=== PATIENT | male | born 1975 | race Caucasian/White ===

== ENCOUNTER → 2017-10-27 11:19 | Outpatient (CLI) | payer OTHER, SELFPAY ==
--- NOTE | 2017-10-27 11:23 | DI.RAD.S_ITS ---
PROCEDURE: XR HAND RT MIN 3V INDICATIONS: 42 year-old male with right hand and finger pain. TECHNIQUE: 3 views of the hand(s) acquired. COMPARISON: None. FINDINGS: Bones: No acute fractures or dislocations. There is nonacute nonunited tiny volar plate avulsion fracture involving the fourth middle phalangeal base. Carpal bones are normally aligned. No suspicious bony lesions. Soft tissues: No suspicious soft tissue calcifications. IMPRESSION: No acute bony injuries of the right hand and fingers. Nonacute nonunited volar plate avulsion fracture of the fourth middle phalangeal base. Dictated by: Tyler Ruiz M.D. on 10/27/2017 at 11:54 Approved by: Tyler Ruiz M.D. on 10/27/2017 at 11:55
== END ==
PROVIDERS: Visit Provider Physician Assistant
DX: M79.641 Pain in right hand (principal); M79.644 Pain in right finger(s)
CPT/HCPCS: 73130

== ENCOUNTER → 2022-05-14 14:05 | Outpatient (CLI) | payer OTHER, SELFPAY ==
--- NOTE | 2022-05-14 14:10 | DI.RAD.S_ITS ---
PROCEDURE: XR KNEE LT 3V INDICATIONS: KNEE PAIN TECHNIQUE: 3 views of the knee were acquired. COMPARISON: None. FINDINGS: Bones: No fractures or dislocations. Mild to moderate tricompartmental osteoarthritis is seen most notably in medial femoral tibial compartment with joint space narrowing, subchondral sclerosis and marginal osteophyte formation. No suspicious bony lesions. Soft tissues: No significant joint effusion. No suspicious soft tissue calcifications. IMPRESSION: [id number] tricompartmental osteoarthritis most notably in medial femoral tibial compartment. No fracture or dislocation. No significant joint effusion. Dictated by: Yobani Cash M.D. on 05/14/2022 at 17:40 Approved by: Yobani Cash M.D. on 05/14/2022 at 17:41
--- NOTE | 2022-05-14 14:11 | DI.RAD.S_ITS ---
PROCEDURE: XR KNEE RT 3V INDICATIONS: KNEE PAIN TECHNIQUE: 3 views of the knee were acquired. COMPARISON: None. FINDINGS: Bones: No fractures or dislocations. Mild tricompartmental osteoarthritis is seen with joint space narrowing and subchondral sclerosis. Fragmented appearance of tibial tuberosity at distal patellar tendon insertion is seen suggestive of old healed Ramon-Schlatter disease. No suspicious bony lesions. Soft tissues: No significant joint effusion. No suspicious soft tissue calcifications. 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 No fracture or dislocation. No significant joint effusion. Dictated by: Yobani Cash M.D. on 05/14/2022 at 17:39 Approved by: Yobani Cash M.D. on 05/14/2022 at 17:40
== END ==
PROVIDERS: Referring Provider Family Medicine; Visit Provider Family Medicine
DX: M25.561 Pain in right knee (principal); M17.0 Bilateral primary osteoarthritis of knee; M25.562 Pain in left knee
CPT/HCPCS: 73562